=== PATIENT | female | born 1950 | race Caucasian/White ===

== ENCOUNTER → 2019-09-25 | Outpatient (CLI) | payer OTHER ==
[~2019-09-25] MED LIST: LEVO50TA5 PO
== END | disposition home or self-care (01) ==
LOC: STAR 10:34
PROVIDERS: ATTEND Internal Medicine
DX: Z01.818 Encounter for other preprocedural examination (principal); I51.7 Cardiomegaly; R22.9 Localized swelling, mass and lump, unspecified
CPT/HCPCS: 93005

== ENCOUNTER 2019-09-29 06:41 | Day surgery (SDC) | payer OTHER ==
[~2019-09-29] VITALS: Ht 149.9 cm; Wt 45.0 kg
[2019-09-29 07:03] VITALS: BP 112/66
[2019-09-29] MEDS ORDERED: LACTATED RINGERS 1,000 ML IV SCH (07:06)
[2019-09-29] MEDS ORDERED: CHLORHEXIDINE 15 ML UDC ONE (07:09)
[2019-09-29] MEDS ORDERED: CHLORHEXIDINE 15 ML UDC MM ONE (07:30)
[2019-09-29] MEDS ORDERED: FENTANYL PF 100 MCG/2ML ONE (08:46)
[2019-09-29] MEDS ORDERED: LIDOCAINE-MPF 2% ,5ML ONE (08:47)
[2019-09-29] MEDS ORDERED: PROPOFOL 10 MG/ML, 20ML ONE ×2 (08:47→09:27)
[2019-09-29] MEDS ORDERED: ONDANSETRON 2MG/ML, 2ML IVPush PRN (09:00)
[2019-09-29] MEDS ORDERED: FENTANYL PF 100 MCG/2ML IV PRN (09:00)
== END 2019-09-29 10:25 | disposition home or self-care (01) ==
LOC: OUT 06:41
PROVIDERS: ATTEND Internal Medicine
DX: K59.8 Other specified functional intestinal disorders (principal); D12.0 Benign neoplasm of cecum; D12.8 Benign neoplasm of rectum; K57.30 Diverticulosis of large intestine without perforation or abscess without bleeding; E03.9 Hypothyroidism, unspecified; Z79.899 Other long term (current) drug therapy; Z72.89 Other problems related to lifestyle
CPT/HCPCS: 45381; 45385; 88305; J2704; J3010; J7120; U0001-CS